=== PATIENT | female | born 1975 | race Caucasian/White ===

== ENCOUNTER 2017-10-04 10:45 | Day surgery (SDC) | payer OTHER ==
[2017-10-04 12:42] LABS: ADD MAN DIFF? NO
[2017-10-04 12:49] LABS: WHITE BLOOD COUNT 6.9 10^3/ul (4.8-10.8)
[2017-10-04 12:49] LABS: BASOPHILS % 0.6 % (0.0-2.0); EOSINOPHILS % 0.4 % (0.0-7.0); HEMATOCRIT 34.9 % (37.0-47.0); HEMOGLOBIN 11.1 g/dl (12.0-16.0); LYMPHOCYTES # 2.5 10^3/ul (0.8-2.9); MEAN CORPUSCULAR HEMOGLOBIN 22.2 pg (29.0-33.0); MEAN CORPUSCULAR HGB CONC 31.8 g/dl (32.0-37.0); MEAN CORPUSCULAR VOLUME 69.9 fl (82.0-101.0); MEAN PLATELET VOLUME 10.6 fl (7.4-10.4); MONOCYTE # 0.6 10^3/ul (0.3-0.9); MONOCYTES % 8.9 % (0.0-11.0); NEUTROPHIL # 3.7 10^3/ul (1.6-7.5); PLATELET COUNT 203 10^3/UL (140-415); RED BLOOD COUNT 4.99 10^6/ul (4.20-5.40); RED CELL DISTRIBUTION WIDTH 19.3 % (11.5-14.5)
[2017-10-04] MEDS ORDERED: PROPOFOL 20 ML (13:22)
[2017-10-04] MEDS ORDERED: CEFAZOLIN 1 GM INJ (13:22)
[2017-10-04] MEDS ORDERED: ROCURONIUM 50 MG INJ (13:22)
[2017-10-04] MEDS ORDERED: NEOSTIGMINE 3 MG/3 ML SYRINGE (13:22)
[2017-10-04] MEDS ORDERED: GLYCOPYRROLATE 0.4 MG INJ (13:22)
[2017-10-04] MEDS ORDERED: FENTAnyl 50 MCG/ML VIAL (13:23)
[2017-10-04] MEDS ORDERED: DEXAMETHASONE 4 MG/ML 1 ML INJ (13:23)
[2017-10-04] MEDS ORDERED: ONDANSETRON 4 MG INJ (13:23)
[2017-10-04] MEDS ORDERED: MIDAZOLAM 1 MG/ML 2 ML INJ (13:23)
[2017-10-04] MEDS ORDERED: FENTAnyl 50 MCG/ML VIAL IV ×2 (14:00)
[2017-10-04] MEDS ORDERED: IPRATROPIUM (NEB) 0.5 MG/2.5 ML AMP HHN (14:00)
[2017-10-04] MEDS ORDERED: OXYCODONE/ACETAMINOPHEN (5/325) TAB PO (14:00)
[2017-10-04] MEDS ORDERED: DIPHENHYDRAMINE 50 MG INJ IV (14:00)
[2017-10-04] MEDS ORDERED: MIDAZOLAM 1 MG/ML 2 ML INJ IV (14:00)
[2017-10-04] MEDS ORDERED: HYDROmorphONE (0.2 MG/ML) 10ML SYG IV ×3 (14:00)
[2017-10-04] MEDS ORDERED: ALBUTEROL 0.083% (NEB) 2.5 MG/3 ML AMP HHN (14:00)
[2017-10-04] MEDS ORDERED: hydrALAzine 20 MG INJ IV (14:00)
[2017-10-04] MEDS ORDERED: TRIMETHOBENZAMIDE 100 MG/ML VIAL IM (14:00)
[2017-10-04] MEDS ORDERED: EPHEDrine SULFATE 50 MG/5 ML SYG IV (14:00)
[2017-10-04] MEDS ORDERED: LABETALOL HCL 20MG INJ IV (14:00)
[2017-10-04] MEDS: FENTAnyl 50 MCG/ML VIAL IV (14:21)
[2017-10-04] MEDS: MEPERIDINE 25 MG INJ IV (14:21)
[2017-10-04] MEDS: ONDANSETRON 4 MG INJ IV (14:22)
[2017-10-04] MEDS: OXYCODONE/ACETAMINOPHEN (5/325) TAB PO (15:38)
== END 2017-10-04 16:08 | disposition home or self-care (01) ==
LOC: SDS 10:45
DX: N93.9 Abnormal uterine and vaginal bleeding, unspecified (principal)
CPT/HCPCS: 58563; 85025; 86850; 86900; 86901